=== PATIENT | male | born 2000 | race Caucasian/White ===

== ENCOUNTER 2023-07-02 16:21 | Inpatient (IN) | payer OTHER ==
[~2023-07-02] VITALS: Ht 177.8 cm; Wt 81.2 kg
[2023-07-02 18:01] LABS: HEMOGLOBIN 15.5 g/dl (13.5-17.5); MEAN CORPUSCULAR HEMOGLOBIN 30.2 pg (27.0-33.0); MEAN CORPUSCULAR HGB CONC 34.4 g/dl (32.0-36.5); MEAN CORPUSCULAR VOLUME 87.7 fl (80.0-96.0); PLATELET COUNT, AUTOMATED 232 10^3/uL (150-450); RED BLOOD COUNT 5.13 10^6/uL (4.30-6.10); WHITE BLOOD COUNT 7.9 10^3/uL (4.0-10.0)
[2023-07-02 18:21] LABS: AMPHETAMINES LEVEL URINE NEGATIVE (NEGATIVE); BARBITURATES URINE NEGATIVE (NEGATIVE); BENZODIAZEPINES URINE NEGATIVE (NEGATIVE); CANNABINOIDS URINE NEGATIVE (NEGATIVE); COCAINE METABOLITE URINE NEGATIVE (NEGATIVE); METHADONE URINE NEGATIVE (NEGATIVE); OPIATES URINE NEGATIVE (NEGATIVE); PHENCYCLIDINE URINE NEGATIVE (NEGATIVE)
[2023-07-02 18:24] LABS: ETHYL ALCOHOL (ETHANOL) < 0.003 % (0.000-0.010)
[2023-07-02 18:25] LABS: ACETAMINOPHEN LEVEL < 2.0 UG/ML (10.0-20.0); SALICYLATE LEVEL < 3.0 MG/DL (<30)
[2023-07-02 18:26] LABS: ALBUMIN 4.4 G/DL (3.2-5.2); ALKALINE PHOSPHATASE 100 U/L (46-116); ALT/SGPT 23 U/L (7.0-40); AST/SGOT 17 U/L (<34); BILIRUBIN,DIRECT 0.4 MG/DL (<0.4); BILIRUBIN,TOTAL 0.9 MG/DL (0.3-1.2); BLOOD UREA NITROGEN 14 MG/DL (9-23); CALCIUM LEVEL 10.1 MG/DL (8.5-10.1); CARBON DIOXIDE LEVEL 25 MMOL/L (20-31); CHLORIDE LEVEL 104 MMOL/L (98-107); CREATININE FOR GFR 1.17 MG/DL (0.70-1.30); GLOMERULAR FILTRATION RATE > 60.0 (>60); GLUCOSE, FASTING 94 MG/DL (60-100); POTASSIUM SERUM 4.1 MMOL/L (3.5-5.1); SODIUM LEVEL 139 MMOL/L (136-145); TOTAL PROTEIN 7.6 G/DL (5.7-8.2)
[2023-07-02 18:28] LABS: THYROID STIMULATING HORMONE 0.569 uIU/ML (0.55-4.78)
[2023-07-02] MEDS ORDERED: MED REC IN PROGRESS XX SCH (19:10)
[2023-07-02] MEDS ORDERED: HOME MED LIST COMPLETE! XX SCH (19:45)
[2023-07-02] MEDS ORDERED: MAALOX 30 ML SUSP *UDC PO PRN (20:00)
[2023-07-02] MEDS ORDERED: diphenhydrAMINE 25MG CAP PO PRN (20:00)
[2023-07-02] MEDS ORDERED: ACETAMINOPHEN TAB 650MG DOSE (2X325MG) PO PRN (20:00)
[2023-07-02] MEDS ORDERED: MOM 30ML SUSPENSION UDC PO PRN (20:00)
[2023-07-02] MEDS ORDERED: IBUPROFEN 400MG TAB PO PRN (20:00)
[2023-07-02] MEDS ORDERED: traZODone 50 MG TAB PO PRN (20:00)
[2023-07-02 21:40] VITALS: BP 121/77; TEMP 97.6; O2SAT 98
[2023-07-03 06:43] VITALS: BP 133/62; TEMP 96; O2SAT 97
[2023-07-03 17:37] VITALS: BP 152/75; TEMP 96.9; O2SAT 97
[2023-07-04 06:54] VITALS: BP 105/68; TEMP 97.3; O2SAT 97
[2023-07-04 18:23] VITALS: BP 112/56; TEMP 97.8; O2SAT 97
[2023-07-05 06:38] VITALS: BP 108/57; TEMP 96.7; O2SAT 100
[2023-07-05 16:58] VITALS: BP 148/65; TEMP 98.1
[2023-07-06 06:16] VITALS: BP 111/59; TEMP 97.6; O2SAT 99
== END 2023-07-06 11:51 | disposition home or self-care (01) | DRG 880 ==
LOC: M ED 16:21 → EDBD 16:21 → M ED INP 19:59 → M PSY 22:40
PROVIDERS: ADMIT Student in an Organized Health Care Education/Training Program; ATTEND Student in an Organized Health Care Education/Training Program
DX: F41.8 Other specified anxiety disorders (principal); R45.851 Suicidal ideations; F43.21 Adjustment disorder with depressed mood; Z91.51 Personal history of suicidal behavior; Z63.5 Disruption of family by separation and divorce; F32.89 Other specified depressive episodes; Z91.82 Personal history of military deployment; Z56.3 Stressful work schedule